=== PATIENT | female | born 1975 | race Caucasian/White ===

== ENCOUNTER → 2024-04-01 06:25 | Day surgery (SDC) | payer OTHER, SELFPAY | LOC: GI 06:25 | PROVIDERS: ATTENDING PHYSICIAN Internal Medicine | DX: Z12.11 Encounter for screening for malignant neoplasm of colon (principal); Z86.010 Personal history of colon polyps; K64.9 Unspecified hemorrhoids | CPT/HCPCS: G0105 ==